=== PATIENT | male | born 1985 | race Caucasian/White ===

== ENCOUNTER 2024-04-13 20:53 | Inpatient (IN) | payer SELFPAY ==
[~2024-04-13] VITALS: Ht 172.7 cm; Wt 72.1 kg
[2024-04-13 21:45] LABS: BG BASE EXCESS -5.6 mmol/L (-2.0-3.0); BG CARBOXYHEMOGLOBIN 0.9 % (0.5-1.5); BG DEOXYHEMOGLOBIN 1.1 % (0.0-5.0); BG FRACTION INSPIRED OXYGEN 36; BG OXYGEN SATURATION 98.9 % (94.0-98.0); BG PCO2 74.4 mmHg (35.0-48.0); BG PH 7.144 (7.350-7.450); BG PO2 190.3 mmHg (83.0-108.0); BG TOTAL HEMOGLOBIN 14.1 g/dL (13.5-17.5); BG VENT MODE NASAL CANNULA
[2024-04-13] MEDS: NALOXONE HCL 0.4MG/ML 1ML VIAL IV ONE (21:59)
[2024-04-13] MEDS: SODIUM CHLORIDE 0.9% 1,000 ML IV ONE (21:59)
[2024-04-13] MEDS: NALOXONE HCL 1MG/ML 2ML VIAL IV ONE (22:12)
[2024-04-13 23:16] LABS: CARBON DIOXIDE 26 mEq/L (21-32); CHLORIDE 109 mEq/L (98-107); SODIUM 145 mEq/L (136-145)
[2024-04-13 23:17] LABS: CALCIUM 7.8 mg/dL (8.7-10.4)
[2024-04-13 23:22] LABS: ETHANOL BLOOD 206 mg/dL (<10); GLUCOSE 142 mg/dL (70-105); UREA NITROGEN BLOOD 13 mg/dL (9-23)
[2024-04-13 23:23] LABS: TROPONIN I HIGH SENSITIVITY 17 ng/L (3.0-53)
[2024-04-13 23:24] LABS: ACETAMINOPHEN < 2 ug/mL (10-30); HEMATOCRIT. 40.6 % (42.0-52.0); HEMOGLOBIN. 13.3 g/dL (14.0-18.0); LYMPHOCYTES % 7.5 % (20.0-50.0); MEAN CORPUSCULAR HGB CONC 32.8 g/dL (31.0-37.0); MEAN CORPUSCULAR VOLUME 85.2 fL (80.0-94.0); MEAN PLATELET VOLUME 10.2 fl (7.4-10.4); MONOCYTES % 6.7 % (2.0-8.0); NEUTROPHILS % 85.8 % (40.0-76.0); PLATELET 191 x1000/uL (130-400); RED BLOOD CELL COUNT 4.76 mill/uL (4.7-6.1); RED CELL DISTRIBUTION WIDTH 13.6 % (11.6-14.6); WHITE BLOOD COUNT 16.9 x1000/uL (4.5-11.0)
[2024-04-14] VITALS (8 sets, daily range): BP systolic 100–129; BP diastolic 53–76; PULSE 61–76; RESP 12–22; TEMP 36.9–37.3; O2SAT 92–99
[2024-04-14] MEDS ORDERED: IPRATROPIUM/ALBUTEROL 0.5-3(2.5)MG/3ML NEB HHN PRN (04:00)
[2024-04-14] MEDS ORDERED: ACETAMINOPHEN 325MG TABLET PO PRN (04:00)
[2024-04-14] MEDS ORDERED: LORAZEPAM 2MG/ML INJ IV PRN (04:00)
[2024-04-14] MEDS ORDERED: DEXTROSE 50% WATER 50ML SYRINGE IV PRN (04:00)
[2024-04-14] MEDS ORDERED: HYDRALAZINE 20MG/ML VIAL IV PRN (04:00)
[2024-04-14] MEDS ORDERED: ONDANSETRON HCL 4MG/2ML INJ IV PRN (04:00)
[2024-04-14] MEDS: NALOXONE HCL 0.4MG/ML 1ML VIAL IV NR (04:24)
[2024-04-14 04:35] LABS: HEMATOCRIT. 42.9 % (42.0-52.0); HEMOGLOBIN. 13.9 g/dL (14.0-18.0); MEAN CORPUSCULAR HEMOGLOBIN 27.7 pg (28.0-32.0); MEAN CORPUSCULAR HGB CONC 32.5 g/dL (31.0-37.0); MEAN CORPUSCULAR VOLUME 85.2 fL (80.0-94.0); PLATELET 210 x1000/uL (130-400); RED BLOOD CELL COUNT 5.04 mill/uL (4.7-6.1); WHITE BLOOD COUNT 13.7 x1000/uL (4.5-11.0)
[2024-04-14 04:39] LABS: DIFFERENTIAL COMMENT 1
[2024-04-14 04:41] LABS: CARBON DIOXIDE 26 mEq/L (21-32); CHLORIDE 105 mEq/L (98-107); SODIUM 139 mEq/L (136-145)
[2024-04-14 04:47] LABS: GLUCOSE 123 mg/dL (70-105); TRIGLYCERIDE 74 mg/dL (0-150); UREA NITROGEN BLOOD 11 mg/dL (9-23)
[2024-04-14 04:48] LABS: ALANINE AMINOTRANSFERASE 74 IU/L (10-49); ASPARTATE AMINOTRANSFERASE 42 IU/L (<34); CHOLESTEROL 114 mg/dL (<200); CREATINE KINASE 173 IU/L (46-171); CREATINE KINASE MB FRACTION 1.9 ng/mL (0.5-3.6); LDL CHOLESTEROL 52 mg/dL (5-100)
[2024-04-14 04:49] LABS: BILIRUBIN TOTAL 0.3 mg/dL (0.1-1.0); HDL CHOLESTEROL 48 mg/dL (>55); PROTEIN TOTAL 8.1 g/dL (6.0-8.3); TROPONIN I HIGH SENSITIVITY 13 ng/L (3.0-53)
[2024-04-14 04:52] LABS: T4 FREE 1.11 ng/dL (0.89-1.76)
[2024-04-14 04:58] LABS: BG BASE EXCESS -4.2 mmol/L (-2.0-3.0); BG CARBOXYHEMOGLOBIN 0.8 % (0.5-1.5); BG DEOXYHEMOGLOBIN 2.8 % (0.0-5.0); BG FRACTION INSPIRED OXYGEN 36; BG HCO3 ACT 25.4 mmol/L (21.0-28.0); BG METHEMOGLOBIN 0.3 % (0.5-1.5); BG OXYGEN SATURATION 97.2 % (94.0-98.0); BG OXYHEMOGLOBIN 96.1 % (94.0-98.0); BG PCO2 67.3 mmHg (35.0-48.0); BG PH 7.194 (7.350-7.450); BG PO2 104.3 mmHg (83.0-108.0); BG TOTAL HEMOGLOBIN 14.3 g/dL (13.5-17.5); BG VENT MODE NASAL CANNULA
[2024-04-14 05:03] LABS: HEPATITIS B SURFACE ANTIGEN NEGATIVE (Negative)
[2024-04-14 05:23] LABS: HEPATITIS A AB IGM NEGATIVE (Negative)
[2024-04-14 05:24] LABS: HEPATITIS B CORE AB IGM NEGATIVE (Negative); HEPATITIS C AB NON REACTIVE (Neg) (Negative)
[2024-04-14] MEDS: CEFTRIAXONE 1GM/50ML 50 ML IV SCH (05:40)
[2024-04-14] MEDS: MVI, ADULT NO.1 10 ML, FOLIC ACID 1 MG, THIAMINE HCL 100 MG in SODIUM CHLORIDE 0.9% 1,0... IV SCH (06:01)
[2024-04-14 06:13] LABS: VITAMIN B12 SERUM 422 pg/mL (211-911)
[2024-04-14 06:49] LABS: POTASSIUM 4.1 mEq/L (3.5-5.1)
[2024-04-14 06:53] LABS: PLATELET ESTIMATE NORMAL
[2024-04-14 07:38] LABS: POTASSIUM 6.8 mEq/L (3.5-5.1)
[2024-04-14 07:46] LABS: CLARITY URINE CLEAR (CLEAR); COLOR URINE YELLOW (YELLOW); GLUCOSE URINE NEGATIVE (NEGATIVE); KETONES URINE NEGATIVE (NEGATIVE); LEUKOCYTE ESTERASE URINE NEGATIVE (NEGATIVE); NITRITE URINE NEGATIVE (NEGATIVE); OCCULT BLOOD URINE NEGATIVE (NEGATIVE); PROTEIN URINE TRACE (NEGATIVE); SPECIFIC GRAVITY URINE 1.017 (1.005-1.030); UROBILINOGEN URINE 0.2 E.U./dL (0.2-1.0)
[2024-04-14 08:03] LABS: *AMPHETAMINES SCREEN URINE NEGATIVE (NEGATIVE); *BARBITURATES SCREEN URINE NEGATIVE (NEGATIVE); *BENZODIAZEPINES SCREEN URINE NEGATIVE (NEGATIVE); *COCAINE SCREEN URINE NEGATIVE (NEGATIVE); METHADONE URINE SCREEN NEGATIVE (NEGATIVE); OPIATES URINE SCREEN NEGATIVE (NEGATIVE); PHENCYCLIDINE URINE SCREEN NEGATIVE (NEGATIVE)
[2024-04-14 08:04] LABS: CANNABINOID URINE SCREEN NEGATIVE (NEGATIVE); ECSTASY MDMA SCREEN URINE NEGATIVE (NEGATIVE)
[2024-04-14 08:31] LABS: BACTERIA URINE NONE SEEN; RBC URINE NONE SEEN /hpf (0-2); SQUAMOUS EPITHELIAL CELL URINE NONE SEEN /lpf (RARE/1+); WBC URINE 0-2 /hpf (0-2); YEAST URINE NONE SEEN
[2024-04-14] MEDS: BLOOD SUGAR DIAGNOSTIC STRIP TEST SCH (09:00)
[2024-04-14] MEDS ORDERED: INFLUENZA VACCINE 05/PF 0.5 ML SYRINGE IM ONE (12:15)
[2024-04-14] MEDS ORDERED: DEXT 5%/0.45% NACL 1000ML 1,000 ML IV SCH (13:00)
[2024-04-14] MEDS: PANTOPRAZOLE SODIUM 40 MG/VIAL IV SCH (13:23)
[2024-04-14] MEDS: METOCLOPRAMIDE HCL 10MG/2ML VIAL IV NR (13:24)
[2024-04-14 17:03] LABS: BG BASE EXCESS 2.7 mmol/L (-2.0-3.0); BG FRACTION INSPIRED OXYGEN 21; BG HCO3 ACT 27.9 mmol/L (21.0-28.0); BG METHEMOGLOBIN 0.3 % (0.5-1.5); BG OXYGEN SATURATION 91.9 % (94.0-98.0); BG OXYHEMOGLOBIN 90.7 % (94.0-98.0); BG PCO2 45.4 mmHg (35.0-48.0); BG PH 7.407 (7.350-7.450); BG PO2 59.1 mmHg (83.0-108.0); BG SAMPLE SITE RIGHT BRACHIAL; BG TOTAL HEMOGLOBIN 12.7 g/dL (13.5-17.5); BG VENT MODE ROOM AIR
[2024-04-14] MEDS: SODIUM CHLORIDE 0.9% 1,000 ML IV SCH (19:45)
[2024-04-15] VITALS (10 sets, daily range): BP systolic 84–103; BP diastolic 50–63; PULSE 51–63; RESP 12–19; TEMP 36.7–36.9; O2SAT 91–97
[2024-04-15 06:36] LABS: CHLORIDE 100 mEq/L (98-107); POTASSIUM 3.5 mEq/L (3.5-5.1); SODIUM 139 mEq/L (136-145)
[2024-04-15 06:37] LABS: CALCIUM 8.5 mg/dL (8.7-10.4); CARBON DIOXIDE 31 mEq/L (21-32)
[2024-04-15 06:42] LABS: CREATININE 0.8 mg/dL (0.6-1.3); GLUCOSE 99 mg/dL (70-105); UREA NITROGEN BLOOD 10 mg/dL (9-23)
[2024-04-15 06:43] LABS: ALANINE AMINOTRANSFERASE 48 IU/L (10-49)
[2024-04-15 06:44] LABS: ALBUMIN 3.7 g/dL (3.2-4.8); ASPARTATE AMINOTRANSFERASE 55 IU/L (<34); BILIRUBIN TOTAL 0.8 mg/dL (0.1-1.0); PROTEIN TOTAL 6.5 g/dL (6.0-8.3)
[2024-04-15 07:52] LABS: BASOPHILS % 0.2 % (0.0-2.0); EOSINOPHILS % 0.1 % (0.0-5.0); HEMOGLOBIN. 11.7 g/dL (14.0-18.0); MEAN CORPUSCULAR HEMOGLOBIN 27.1 pg (28.0-32.0); MEAN CORPUSCULAR HGB CONC 32.5 g/dL (31.0-37.0); MEAN CORPUSCULAR VOLUME 83.3 fL (80.0-94.0); MEAN PLATELET VOLUME 10.6 fl (7.4-10.4); MONOCYTES % 11.5 % (2.0-8.0); NEUTROPHILS % 75.2 % (40.0-76.0); PLATELET 156 x1000/uL (130-400); RED BLOOD CELL COUNT 4.32 mill/uL (4.7-6.1); RED CELL DISTRIBUTION WIDTH 13.7 % (11.6-14.6); WHITE BLOOD COUNT 12.7 x1000/uL (4.5-11.0)
== END 2024-04-15 17:00 | disposition home or self-care (01) | DRG 812 ==
LOC: ER 21:06 → 5EST 04-14 09:04
PROVIDERS: ADMIT Internal Medicine; ATTEND Internal Medicine
DX: T40.2X1A Poisoning by other opioids, accidental (unintentional), initial encounter (principal); J96.02 Acute respiratory failure with hypercapnia; G92.9 Unspecified toxic encephalopathy; D64.9 Anemia, unspecified; D72.829 Elevated white blood cell count, unspecified; R73.9 Hyperglycemia, unspecified; F10.129 Alcohol abuse with intoxication, unspecified; H54.61 Unqualified visual loss, right eye, normal vision left eye; Y90.7 Blood alcohol level of 200-239 mg/100 ml; Z79.899 Other long term (current) drug therapy; Y92.89 Other specified places as the place of occurrence of the external cause
CPT/HCPCS: 36415; 36600; 71045; 80048; 80053; 80061; 80305; 80307; 80320; 80329; 81003; 82306; 82375; 82550; 82553; 82607; 82805; 82962; 83036; 83605; 83735; 83880; 84100; 84132; 84145; 84439; 84443; 84484; 85025; 86705; 86709; 87340; 93005; 93306; 93970; 99291; J0696; J2310; J2470; J2765; J3411; J3490; J7030; G0480